=== PATIENT | male | born 1960 | race Caucasian/White ===

== ENCOUNTER 2018-07-18 16:34 | Inpatient (IN) ==
[2018-07-18] MEDS ORDERED: ONDANSETRON 4 MG/2 ML VIAL IV STA (16:58)
[2018-07-18] MEDS ORDERED: NITROGLYCERIN 2% OINT 1 INCH/GM PACK TOP STA (16:58)
[2018-07-18] MEDS ORDERED: MORPHINE 4 MG/1 ML VIAL IV PRN (16:58)
[2018-07-18] MEDS ORDERED: ASPIRIN 325 MG TABLET PO STA (16:58)
[2018-07-18] MEDS ORDERED: SODIUM CHLORIDE 0.9% 1,000 ML IV STA (17:02)
[2018-07-18] MEDS ORDERED: MORPHINE 4 MG/1 ML VIAL ONE (17:10)
[2018-07-18 17:28] LABS: Basophils # 0.1 10*3/uL (0.0-0.2); Basophils % 0.6 % (0.0-0.8); Eosinophils # 0.1 10*3/uL (0.0-0.87); Eosinophils % 0.8 % (0.00-10.9); Hemoglobin 16.8 GM/DL (14.0-18.0); Immature Granulocytes % 0.9 %; Immature Granulocytes Absolute 0.12 #; Lymphocytes # 2.5 10*3/uL (1.4-4.0); Lymphocytes % 19.1 % (21.2-54.2); Mean Corpuscular HGB Conc 35.7 GM/DL (32-36); Mean Corpuscular Hemoglobin 34 PG (27-34); Mean Corpuscular Volume 93.8 FL (87-102); Mean Platelet Volume 10.1 FL (9.6-12.0); Monocytes # 1.3 10*3/uL (0.11-0.8); Monocytes % 10.2 % (1.7-12.7); Neutrophils # 8.9 10*3/uL (1.4-7.4); Neutrophils % 68.4 % (38.7-73.9); Platelet Count 250 T/CUMM (130-400); Red Blood Count 5.01 MC/CUMM (3.8-5.5); Red Cell Distribution Width 13.2 % (9.3-17.3); White Blood Count 13.1 T/CUMM (4-12)
[2018-07-18 17:35] LABS: PT Patient Result 10.4 SECS; Partial Thromboplastin Time 26.4 SECS (0-40)
[2018-07-18 17:36] LABS: Amorphous Crystals,Urine Occasional /HPF (Few); Apearance,Urine CLOUDY (Clear); Bilirubin,Urine Negative (Negative); Blood, Urine Large mg/dL (Negative); Glucose,Urine (UA) Negative (Negative); Ketones,Urine Negative (Negative); Mucus,Urine Few /LPF (Occasional); Nitrite,Urine Negative (Negative); Protein,Urine 30 MG/DL; RBC,Urine 89 /HPF (0-4); Urine Color Yellow (Yellow); Urine Specific Gravity 1.026 (1.001-1.035); WBC,Urine 6 /HPF (0-6)
[2018-07-18 17:50] LABS: Albumin 3.9 G/DL (3.4-5.0); Bilirubin,Total 0.7 MG/DL (0.2-1.0); Osmolality,Calculated 283.3 MOS/KG (273-304); Total Protein 7.4 G/DL (6.4-8.3)
[2018-07-18 18:01] LABS: Barbiturates Screen,Urine Negative (Negative); Benzodiazepines Screen,Urine Negative (Negative); Cannabinoid Screen,Urine Negative (Negative); Opiate Screen,Urine Negative (Negative); Phencyclidine Screen,Urine Negative (Negative)
[2018-07-18] MEDS ORDERED: HYDROmorphone 2 MG/1 ML VIAL IV STA (18:06)
[2018-07-18] MEDS ORDERED: ACETAMINOPHEN 325 MG TABLET PO PRN (20:03)
[2018-07-18] MEDS ORDERED: ONDANSETRON 4 MG/2 ML VIAL IV PRN (20:03)
[2018-07-18] MEDS ORDERED: NITROGLYCERIN SL 0.4 MG TABLET SL PRN (20:03)
[2018-07-18] MEDS: DOCUSATE SODIUM 100 MG CAPSULE PO SCH (20:25)
[2018-07-18] MEDS ORDERED: FAMOTIDINE PO SCH (21:00)
[2018-07-18] MEDS ORDERED: IBUPROFEN PO SCH (21:00)
[2018-07-18] MEDS ORDERED: LEVOFLOXACIN INJ 500 MG in PREMIX 1 EACH IV SCH (21:00)
[2018-07-18] MEDS: HYDROmorphone 2 MG/1 ML VIAL IV PRN (21:07)
[2018-07-18] MEDS: SODIUM CHLORIDE 0.9% 1,000 ML IV SCH (21:10)
[2018-07-19] MEDS: HYDROmorphone 2 MG/1 ML VIAL IV PRN ×3 (01:06→22:20)
[2018-07-19 05:29] LABS: Basophils % 0.3 % (0.0-0.8); Eosinophils % 0.2 % (0.00-10.9); Hematocrit 43.8 VOL% (42.0-52.0); Hemoglobin 15.3 GM/DL (14.0-18.0); Immature Granulocytes % 0.8 %; Immature Granulocytes Absolute 0.12 #; Lymphocytes # 1.8 10*3/uL (1.4-4.0); Lymphocytes % 11.6 % (21.2-54.2); Mean Corpuscular HGB Conc 34.9 GM/DL (32-36); Mean Corpuscular Hemoglobin 34 PG (27-34); Mean Corpuscular Volume 96.1 FL (87-102); Mean Platelet Volume 10.5 FL (9.6-12.0); Monocytes # 1.6 10*3/uL (0.11-0.8); Monocytes % 10.6 % (1.7-12.7); Neutrophils # 11.6 10*3/uL (1.4-7.4); Neutrophils % 76.5 % (38.7-73.9); Platelet Count 217 T/CUMM (130-400); Red Blood Count 4.56 MC/CUMM (3.8-5.5); Red Cell Distribution Width 13.4 % (9.3-17.3); White Blood Count 15.1 T/CUMM (4-12)
[2018-07-19 05:51] LABS: Calcium 7.8 MG/DL (8.5-10.1); Osmolality,Calculated 285.1 MOS/KG (273-304); Potassium 4.1 MMOL/L (3.5-5.1)
[2018-07-19] MEDS: SODIUM CHLORIDE 0.9% 1,000 ML IV SCH (06:04)
[2018-07-19] MEDS: DOCUSATE SODIUM 100 MG CAPSULE PO SCH ×2 (08:53→21:20)
[2018-07-19] MEDS: FAMOTIDINE 20 MG TABLET PO SCH ×2 (09:00→21:20)
[2018-07-19] MEDS ORDERED: Lisdexamfetamine Dimesylate [Vyvanse] 70 MG PO SCH (09:00)
[2018-07-19] MEDS: TAMSULOSIN 0.4 MG CAPSULE PO SCH (09:01)
[2018-07-19] MEDS: buPROPion XL 150 MG TABLET PO SCH (09:01)
[2018-07-19] MEDS: PIPERACILLIN/TAZOBACTAM 3,375 MG in SODIUM CHLORIDE 0.9% 100 ML IV SCH ×2 (09:01→16:17)
[2018-07-19] MEDS: PANTOPRAZOLE 40 MG TABLET PO SCH (09:01)
[2018-07-19] MEDS: SODIUM CHLOR 0.9% KCL 20 MEQ 20 MEQ/1,000 ML BAG IV SCH ×2 (09:01→16:12)
[2018-07-19] MEDS: IBUPROFEN 800 MG TABLET PO SCH ×2 (09:02→21:19)
[2018-07-19] MEDS: HYDROmorphone 2 MG/1 ML VIAL IM PRN ×3 (10:28→18:48)
[2018-07-19] MEDS ORDERED: LEVOFLOXACIN INJ 500 MG in PREMIX 1 EACH IV SCH (21:00)
[2018-07-20] MEDS: PIPERACILLIN/TAZOBACTAM 3,375 MG in SODIUM CHLORIDE 0.9% 100 ML IV SCH ×3 (01:39→18:02)
[2018-07-20] MEDS: HYDROmorphone 2 MG/1 ML VIAL IV PRN ×2 (02:23→10:01)
[2018-07-20] MEDS: SODIUM CHLOR 0.9% KCL 20 MEQ 20 MEQ/1,000 ML BAG IV SCH (02:23)
[2018-07-20] MEDS ORDERED: LIDOCAINE 2% TOP JELLY 20 ML VIAL INTRAURETH ONE (06:21)
[2018-07-20] MEDS ORDERED: ALBUTEROL/IPRATROPIUM 3 ML NEB RESP TX ONE (06:43)
[2018-07-20] MEDS ORDERED: BUPIVACAINE 0.25% /EPI 10 ML VIAL ONE (07:01)
[2018-07-20] MEDS ORDERED: LIDOCAINE 1%/EPI INJ 20 ML VIAL ONE (07:01)
[2018-07-20] MEDS ORDERED: TISSUE ADHESIVE 1 EACH APPLICATOR TOP ONE (07:01)
[2018-07-20] MEDS ORDERED: SEVOFLURANE 1 UNIT/15 MINUTE INH ONE (08:59)
[2018-07-20] MEDS ORDERED: PROPOFOL 200 MG/20 ML VIAL IV ONE (08:59)
[2018-07-20] MEDS ORDERED: LABETALOL 100 MG/20 ML VIAL IV ONE (09:00)
[2018-07-20] MEDS ORDERED: PHENYLEPHRINE 1 MG/10 ML SYRINGE IV ONE (09:00)
[2018-07-20] MEDS ORDERED: GLYCOPYRROLATE 0.4 MG/2 ML VIAL ONE (09:00)
[2018-07-20] MEDS ORDERED: ACETAMINOPHEN 1,000 MG/100 ML VIAL IV ONE (09:00)
[2018-07-20] MEDS ORDERED: MIDAZOLAM 2 MG/2 ML VIAL ONE (09:00)
[2018-07-20] MEDS ORDERED: fentaNYL 100 MCG/2 ML VIAL ONE (09:00)
[2018-07-20] MEDS ORDERED: NEOSTIGMINE 10 MG/10 ML VIAL ONE (09:01)
[2018-07-20] MEDS ORDERED: SUCCINYLCHOLINE 200 MG/10 ML VIAL ONE (09:01)
[2018-07-20] MEDS ORDERED: ROCURONIUM 100 MG/10 ML VIAL IV ONE (09:01)
[2018-07-20] MEDS ORDERED: ePHEDrine 50 MG/ML AMP ONE (09:01)
[2018-07-20] MEDS: IBUPROFEN 800 MG TABLET PO SCH (09:55)
[2018-07-20] MEDS: TAMSULOSIN 0.4 MG CAPSULE PO SCH (09:55)
[2018-07-20] MEDS: PANTOPRAZOLE 40 MG TABLET PO SCH (09:55)
[2018-07-20] MEDS: buPROPion XL 150 MG TABLET PO SCH (09:55)
[2018-07-20] MEDS: DOCUSATE SODIUM 100 MG CAPSULE PO SCH (09:55)
[2018-07-20] MEDS: FAMOTIDINE 20 MG TABLET PO SCH (09:55)
[2018-07-20 13:20] LABS: Basophils % 0.2 % (0.0-0.8); Eosinophils % 0.2 % (0.00-10.9); Hematocrit 44.9 VOL% (42.0-52.0); Hemoglobin 14.8 GM/DL (14.0-18.0); Immature Granulocytes % 0.8 %; Immature Granulocytes Absolute 0.08 #; Lymphocytes # 1.1 10*3/uL (1.4-4.0); Lymphocytes % 10.7 % (21.2-54.2); Mean Corpuscular Hemoglobin 34 PG (27-34); Mean Platelet Volume 9.9 FL (9.6-12.0); Monocytes % 9.6 % (1.7-12.7); Neutrophils # 8.3 10*3/uL (1.4-7.4); Neutrophils % 78.5 % (38.7-73.9); Platelet Count 168 T/CUMM (130-400); Red Cell Distribution Width 13.1 % (9.3-17.3); White Blood Count 10.5 T/CUMM (4-12)
[2018-07-20 16:02] VITALS: BP 158/82
== END 2018-07-20 18:43 | disposition home or self-care (01) | DRG 419 ==
LOC: N.ED 16:34 → N.EDINP 16:34 → N.2E 19:38
PROVIDERS: ADMIT Family Medicine; ATTEND Family Medicine
PROC: LAPCHOL (2018-07-20 07:05)